=== PATIENT | female | born 1955 | race African-American/Black ===

== ENCOUNTER → 2018-03-28 | Outpatient (CLI) | payer BC ==
--- NOTE | 2018-03-28 09:59 | Diagnostic Imaging Report ---
PROCEDURE: X-RAY CHEST, TWO VIEWS COMPARISON: 03/13/2014. INDICATIONS: OBSTRUCTIVE SLEEP APNEA FINDINGS: Lungs are well-inflated. No focal airspace consolidation, pleural effusion, or pneumothorax. Cardiomediastinal contour and pulmonary vasculature are within normal limits. No acute osseous abnormality. Multilevel degenerative disc changes of the thoracic spine. CONCLUSION: No acute cardiopulmonary abnormality. Dictated by: Shivam Lockwood M.D. on 03/28/2018 at 10:02 Electronically approved by: Shivam Lockwood M.D. on 03/28/2018 at 10:02
--- NOTE | 2018-03-29 07:11 | Diagnostic Imaging Report ---
EXAM: DXA BONE DENSITY INDICATIONS: OSTEOPENIA COMPARISON: None. FINDINGS: Proximal left femur bone mineral density (BMD) (g/cm2):0.959 Femur T-score (standard deviation relative to young adult mean BMD): -0.5 Femur Z-score (standard deviation relative to age-matched control group):0.3 Lumbar bone mineral density (BMD) (g/cm2):1.267 Lumbar T-score (standard deviation relative to young adult mean BMD): 1.1 Lumbar Z-score (standard deviation relative to age-matched control group):2.7 Change since prior exam (%): Femur:Not applicable. Spine:Not applicable. Change since oldest prior exam (%): Femur:Not applicable. Spine:Not applicable. CONCLUSION: 1. Bone mineral density in the left femur is classified as normal. Fracture risk is not increased. 2. Bone mineral density in the spine is classified as normal. Fracture risk is not increased. World Health Organization Classification: *The Z-score is provided for informational purposes. The T-score is preferable for clinical decisions. When comparing exams, a change of >4% is considered statistically significant. SUGGESTED RECOMMENDATIONS: Normal \T\ Osteopenia:Consideration should be given to use of calcium supplementation, daily multiple vitamins and adequate exercise, as preventive measures against osteoporosis, if clinically indicated. Osteoporosis \T\ Severe Osteoporosis:In addition to the above, consideration should be given to medical therapy against osteoporosis, if clinically indicated. Castro Alcantar D.O. Dictated by: Castro Alcantar D.O. on 03/29/2018 at 7:13 Electronically approved by: Castro Alcantar D.O. on 03/29/2018 at 7:13
--- NOTE | 2018-03-30 08:14 | Diagnostic Imaging Report ---
#[id number] - [id number] #BILATERAL DIGITAL SCREENING MAMMOGRAM WITH CAD: 03/28/2018 CLINICAL: Routine screening. Comparison is made to exams dated: 07/19/2015 mammogram and 02/23/2014 mammogram - [facility]. Current study contains 4 films. There are scattered fibroglandular elements in both breasts. Current study was also evaluated with a Computer Aided Detection (CAD) system. There are benign lymph nodes in both breasts. There also is a benign calcification in the right breast. No significant masses, calcifications, or other findings are seen in either breast. There has been no significant interval change. IMPRESSION: BENIGN There is no mammographic evidence of malignancy. A 1 year screening mammogram is recommended. The patient will be notified by letter of the results. Castro gee/latrice:03/29/2018 12:40:06 [employer] Dean: Sagrario ALVARADO(Joceline)(Leni), [facility] letter sent: Compared to Prior B9 Mammogram BI-RADS: 2 Benign
== END ==
LOC: MAMMO 08:45
PROVIDERS: ATTEND Internal Medicine
DX: Z12.31 Encounter for screening mammogram for malignant neoplasm of breast (principal); M85.80 Other specified disorders of bone density and structure, unspecified site; G47.33 Obstructive sleep apnea (adult) (pediatric)
CPT/HCPCS: 71046; 77067; 77080

== ENCOUNTER 2025-02-09 15:15 | Emergency (ER) | payer BC, MEDICARE ==
[~2025-02-09] VITALS: Ht 162.6 cm; Wt 72.6 kg
[2025-02-09 15:18] VITALS: TEMP 97.1
[2025-02-09 15:46] VITALS: PULSE 82; RESP 15; O2SAT 100
== END 2025-02-09 18:04 | disposition home or self-care (01) ==
LOC: ER 15:25
DX: F10.129 Alcohol abuse with intoxication, unspecified (principal); I10 Essential (primary) hypertension; E11.9 Type 2 diabetes mellitus without complications; Z91.148 Patient's other noncompliance with medication regimen for other reason
CPT/HCPCS: 36415; 80320; 99284